=== PATIENT | female | born 1995 | race Two or more races ===

== ENCOUNTER 2018-12-15 17:53 | Outpatient (CLI) | payer SELFPAY | END 2018-12-15 23:59 | disposition home or self-care (01) | LOC: RAD 17:53 | DX: S13.4XXA Sprain of ligaments of cervical spine, initial encounter (principal); M99.01 Segmental and somatic dysfunction of cervical region; V89.2XXA Person injured in unspecified motor-vehicle accident, traffic, initial encounter; Y93.89 Activity, other specified; Y92.89 Other specified places as the place of occurrence of the external cause; Y99.8 Other external cause status | CPT/HCPCS: 72050 ==

== ENCOUNTER 2020-09-23 19:34 | Emergency (ER) | payer MEDICAID, OTHER ==
[~2020-09-23] VITALS: Ht 154.9 cm; Wt 65.0 kg
--- NOTE | 2020-09-23 19:50 | NUR ---
PT CAME IN [place] VOMITTING BLOOD X 3DAYS. ADMITS TO ETOH DRINKS FOUR LOKOS AND 2 BOTTLES OF WINE A DAY no vomiting today Last drink 45 min ago diaphoretic, hr 130 Placed on equipment monitor phototypesetting-large bore piv placed to which 1l ns administered
[2020-09-23] MEDS ORDERED: ONDANSETRON 2MG/ML, 2ML IVPush ONE (20:00)
[2020-09-23] MEDS ORDERED: FAMOTIDINE 20 MG/2 ML IVPush ONE (20:00)
[2020-09-23] MEDS ORDERED: LORazepam 2 MG/ML, 1ML IVPush ONE (20:00)
[2020-09-23] MEDS ORDERED: SODIUM CHLORIDE 0.9% 1,000ML IVBOLUS ONE (20:00)
[2020-09-23] MEDS ORDERED: THIAMINE 100MG TABLET PO ONE (20:00)
[2020-09-23 20:31] LABS: BASOPHILS % (AUTO) 0 % (0-1); EOSINOPHILS % (AUTO) 0 % (1-7); LYMPHOCYTES % (AUTO) 11 % (22-44); MEAN CORPUSCULAR HEMOGLOBIN 35.9 pg (27.0-34.8); MEAN CORPUSCULAR HGB CONC 33.9 g/dL (32.4-35.8); MEAN PLATELET VOLUME 8.1 fL (7.4-10.4); MONOCYTES % (AUTO) 10 % (2-9); NEUTROPHILS % (AUTO) 79 % (42-75); PLATELET COUNT 181 x10^3/uL (130-400); RED CELL DISTRIBUTION WIDTH 13.5 % (9.6-15.2)
[2020-09-23 20:41] LABS: ALBUMIN 3.7 g/dL (3.4-5.0); ANION GAP 11 mmol/L (5-15); CALCIUM 8.8 mg/dL (8.5-10.1); CHLORIDE 113 mmol/L (98-107)
[2020-09-23 20:45] LABS: ALANINE AMINOTRANSFERASE 133 U/L (12-78); ALKALINE PHOSPHATASE 116 U/L (45-117); BILIRUBIN,TOTAL 0.5 mg/dL (0.2-1.0); TOTAL PROTEIN 7.9 g/dL (6.4-8.2)
[2020-09-23 20:53] LABS: MD SCAN
[2020-09-23] MEDS ORDERED: PANTOPRAZOLE 40 MG IV IVPush ONE (21:00)
[2020-09-23] MEDS ORDERED: LORazepam 2 MG/ML, 1ML ONE (21:18)
[2020-09-23] MEDS ORDERED: THIAMINE 100MG TABLET ONE (21:19)
[2020-09-23] MEDS ORDERED: ONDANSETRON 2MG/ML, 2ML ONE (21:19)
[2020-09-23] MEDS ORDERED: FAMOTIDINE 20 MG/2 ML ONE (21:20)
[2020-09-23] MEDS ORDERED: PANTOPRAZOLE 40 MG IV ONE (21:20)
--- NOTE | 2020-09-23 21:52 | NUR ---
With reassessment-nause improved. Still no vomiting Asking to eat-deferred 1l ns complete remain tachycardic/slightly hypotensive-erp aware
[2020-09-23 22:27] VITALS: BP 108/51
--- NOTE | 2020-09-23 22:28 | NUR ---
Discharged home in company of friend (both quite competent/caring people) after patient was educated on medication plan, importance of etoh cessation, and community resources to help with detox
== END 2020-09-23 22:29 | disposition home or self-care (01) ==
LOC: ED 20:30
DX: K29.20 Alcoholic gastritis without bleeding (principal); F10.20 Alcohol dependence, uncomplicated; R00.0 Tachycardia, unspecified; K92.0 Hematemesis; Z87.891 Personal history of nicotine dependence; Y90.0 Blood alcohol level of less than 20 mg/100 ml
CPT/HCPCS: 36415; 80053; 80320; 83690; 85025; 85379; 93005; 96361; 96374; 96375; 99284; C9113; J2060; J2405; J7030; G0480